=== PATIENT | male | born 1945 ===

== ENCOUNTER 2018-08-12 08:08 | Outpatient (CLI) | payer OTHER ==
[~2018-08-12] VITALS: Ht 177.8 cm; Wt 116.6 kg
== END 2018-08-12 08:20 | disposition home or self-care (01) ==
LOC: OFIC 805 08:08
DX: H61.23 Impacted cerumen, bilateral (principal); H93.13 Tinnitus, bilateral

== ENCOUNTER 2018-12-04 10:32 | Inpatient (IN) | payer OTHER ==
[~2018-12-04] VITALS: Ht 177.8 cm; Wt 115.7 kg
[2019-01-08] MEDS ORDERED: FORTAMET500 MG PO (08:13)
[2019-01-08] MEDS ORDERED: FLOLIPID40 MG/5 ML PO (08:15)
[2019-01-08] MEDS ORDERED: ZYLOPRIM100 M1 PO (08:15)
[2019-01-08] MEDS ORDERED: ASPIR 8181 MG PO (08:15)
== END 2019-01-17 15:02 | DRG 470 ==
LOC: SURG 01-15 07:00 → O/R 01-15 08:23 → SURG 01-15 08:23
PROVIDERS: ADMIT Orthopaedic Surgery
PROC: 0SR902Z Replacement of Right Hip Joint with Metal on Polyethylene Synthetic Substitute, Open Approach (ICD-10-PCS; principal; 2019-01-15 10:00)
DX: M16.11 Unilateral primary osteoarthritis, right hip (principal); D62 Acute posthemorrhagic anemia; Z96.641 Presence of right artificial hip joint; M24.651 Ankylosis, right hip; E11.9 Type 2 diabetes mellitus without complications; E78.2 Mixed hyperlipidemia; H61.23 Impacted cerumen, bilateral; H93.13 Tinnitus, bilateral

== ENCOUNTER 2022-04-21 08:00 | Inpatient (IN) | payer OTHER ==
[~2022-04-21] VITALS: Ht 177.8 cm; Wt 113.4 kg
[~2022-04-21 08:00] MED LIST: ASPIR 8181 MG PO; FLOLIPID40 MG/5 ML PO; FORTAMET500 MG PO; ZYLOPRIM100 M1 PO
[2022-04-21] MEDS ORDERED: ZESTRIL10 M1 PO (09:26)
[2022-04-28] MEDS ORDERED: EZETIMIBE10 MG (08:00)
[2022-04-28] MEDS ORDERED: LATANOPROST2.5 ML (08:00)
[2022-04-28] MEDS ORDERED: PANTOPRAZOLE SO40 MG (08:00)
[2022-04-28] MEDS ORDERED: GABAPENTIN600 MG (08:00)
== END 2022-04-29 19:08 | DRG 470 ==
LOC: SURH 04-27 07:00 → O/R 04-27 15:37 → SURG 04-27 16:38 → SURH 04-27 20:19
PROVIDERS: ADMIT Orthopaedic Surgery; ATTEND Orthopaedic Surgery
PROC: 0SR90JZ Replacement of Right Hip Joint with Synthetic Substitute, Open Approach (ICD-10-PCS; principal; 2022-04-27 07:00)
DX: M16.11 Unilateral primary osteoarthritis, right hip (principal); E78.2 Mixed hyperlipidemia; I10 Essential (primary) hypertension; E11.9 Type 2 diabetes mellitus without complications; Z79.4 Long term (current) use of insulin